=== PATIENT | male | born 1970 | race Two or more races ===

== ENCOUNTER 2022-12-30 22:59 | Emergency (ER) | payer OTHER ==
[~2022-12-30] VITALS: Ht 172.7 cm; Wt 71.2 kg
[2022-12-31] MEDS ORDERED: KETOROLAC TROMETH 60MG/2ML VIAL IM ONE (01:00)
[2022-12-31] MEDS ORDERED: CYCL-837 PO (01:05)
[2022-12-31] MEDS ORDERED: ACE3T PO (01:12)
[2022-12-31 02:07] VITALS: BP 124/94
== END 2022-12-31 01:45 | disposition home or self-care (01) ==
LOC: ER 22:59
DX: S16.1XXA Strain of muscle, fascia and tendon at neck level, initial encounter (principal); S29.012A Strain of muscle and tendon of back wall of thorax, initial encounter; E03.9 Hypothyroidism, unspecified; Z79.899 Other long term (current) drug therapy; W06.XXXA Fall from bed, initial encounter; Y93.89 Activity, other specified; Y92.89 Other specified places as the place of occurrence of the external cause; Y99.8 Other external cause status
CPT/HCPCS: 72125; 96372; 99285; J1885

== ENCOUNTER 2023-05-04 04:34 | Emergency (ER) | payer OTHER ==
[~2023-05-04] VITALS: Ht 170.2 cm; Wt 70.8 kg
[~2023-05-04 04:34] MED LIST: ACE3T PO; CYCL-837 PO
[2023-05-04 10:10] VITALS: BP 110/83; PULSE 96; RESP 18; TEMP 98.4; O2SAT 100
== END 2023-05-04 10:23 | disposition home or self-care (01) ==
LOC: ER 04:34
DX: S02.2XXA Fracture of nasal bones, initial encounter for closed fracture (principal); S00.81XA Abrasion of other part of head, initial encounter; R42 Dizziness and giddiness; Y04.2XXA Assault by strike against or bumped into by another person, initial encounter; Y93.89 Activity, other specified; Y92.89 Other specified places as the place of occurrence of the external cause; Y99.8 Other external cause status
CPT/HCPCS: 70450; 70486; 72125